=== PATIENT | female | born 1970 | race Caucasian/White ===

== ENCOUNTER 2018-01-04 19:21 | Emergency (ER) | payer MEDICAID ==
[~2018-01-04] VITALS: Ht 157.5 cm; Wt 45.4 kg
[~2018-01-04 19:21] MED LIST: BENTYL 10 MG CA10 MG PO; BENTYL20 MG PO; CARAFATE 1 GM TA1 GM PO; CHOLESTYRAMINE P4 GM PO; CIPRO500 MG PO; CLONAZEPAM 0.50.5 M1 PO; CLONAZEPAM 1 MG1 M1 PO; DEPAKOTE ER500 MG PO; FLAGYL500 MG PO; GEODON20 MG PO; HYDROCODONE-AP1 EAC6 PO; HYDROXYZINE HCL25 M1; HYDROXYZINE HCL25 M1 PO; HYDROXYZINE HCL50 MG PO; IBUPROFEN 800800 M1 PO; KEFLEX500 M1 PO; LAMICTAL XR100 MG PO; LATUDA60 MG PO; LEXAPRO 10 MG T10 M1 PO; LOPERAMIDE2 MG PO; NEURONTIN100 MG PO; NOHOMEMEDICATIONS; NORCO 5-325 TA1 EACH PO; PHENERGAN 25 MG25 M1 PO; RESTORIL30 MG PO; SEROQUEL 50 MG50 MG PO; SEROQUEL300 MG PO; TRAZODONE 150150 M1 PO; TRAZODONE HCL100 MG PO; ULTRAM 50MG TAB50 MG PO; VALIUM5 MG PO; VENLAFAXINE HC100 MG PO; ZIPRASIDONE HCL40 MG PO; ZOLOFT50 MG PO
[2018-01-04 19:48] LABS: ABSOLUTE BASOPHILS 0.1 thou/uL (0.0-0.2); ABSOLUTE EOSINOPHILS 0.1 thou/uL (0.0-0.7); ABSOLUTE LYMPHOCYTES 4.1 thou/uL (0.8-5.3); ABSOLUTE MONOCYTES 0.6 thou/uL (0.0-1.2); ABSOLUTE NEUTROPHILS 4.6 thou/uL (1.6-8.1); BASOPHILS 1.2 %; HEMATOCRIT 40.2 % (37.0-47.0); HEMOGLOBIN 14.1 gm/dL (12.0-15.0); LYMPHOCYTES 43.2 %; MCH 35.8 pg (26.0-34.0); MCHC 35.1 g/dL (28.0-37.0); MCV 102.1 fL (80.0-100.0); MONOCYTES 6.5 %; MPV 8.3 fl. (7.2-11.1); NUCLEATED RBCS 0 /100WBC; PLATELET COUNT* 187 thou/uL (150-400); POLYS 48.1 %; RBC 3.94 mil/uL (4.20-5.00); RDW-CV 13.7 % (10.5-14.5); WBC 9.5 thou/uL (4.0-11.0)
[2018-01-04 19:55] LABS: CREATININE 1.1 mg/dL (0.6-1.3); POTASSIUM 3.9 mmol/L (3.5-5.1)
[2018-01-04 20:00] LABS: URINE BILIRUBIN NEGATIVE (Negative); URINE BLOOD NEGATIVE (Negative); URINE CLARITY CLEAR; URINE COLOR YELLOW; URINE GLUCOSE-RANDOM NEGATIVE (Negative); URINE KETONES 1+ (Negative); URINE LEUKOCYTES-REFLEX 1+ (Negative); URINE PROTEIN TRACE (Negative); URINE SPECIFIC GRAVITY 1.025 (1.005-1.030); URINE UROBILINOGEN 0.2 E.U./dl (0.2-1.0)
[2018-01-04 20:00] LABS: ALBUMIN 3.9 g/dL (3.4-5.0); TOTAL BILIRUBIN 0.3 mg/dL (<0.1-1.0); TOTAL PROTEIN 7.8 g/dL (6.4-8.2)
[2018-01-04 20:02] LABS: URINE NITRITE-REFLEX POSITIVE (Negative)
[2018-01-04 20:11] LABS: HYALINE CASTS 0-3 Few /LPF (None Seen); MUCUS >6 Heavy strn/LPF (None Seen); SQUAMOUS >10 Many /LPF (0-3); URINE RBC 3-10 Few /HPF (0-2); URINE WBC-REFLEX 6-15 Few /HPF (0-5)
[2018-01-04 20:12] LABS: CRYSTALS None Seen /LPF (None Seen)
[2018-01-04] MEDS ORDERED: BENTYL 20 MG TA20 M1 PO (21:01)
[2018-01-04] MEDS ORDERED: MACROBID 100 M100 M1 PO (21:01)
[2018-01-04] MEDS ORDERED: ZOFRAN4 MG PO (21:01)
[2018-01-04 21:22] VITALS: BP 113/70
== END 2018-01-04 21:23 | disposition home or self-care (01) ==
LOC: M.ERS 19:21
PROVIDERS: Nurse Practitioner Family
DX: N39.0 Urinary tract infection, site not specified (principal); K59.00 Constipation, unspecified; F41.9 Anxiety disorder, unspecified; F32.9 Major depressive disorder, single episode, unspecified; F43.10 Post-traumatic stress disorder, unspecified; Z90.710 Acquired absence of both cervix and uterus; F17.210 Nicotine dependence, cigarettes, uncomplicated

== ENCOUNTER 2018-03-30 06:50 | Emergency (ER) | payer OTHER ==
[~2018-03-30] VITALS: Ht 160 cm; Wt 47.2 kg
[~2018-03-30 06:50] MED LIST changes: +BENTYL 20 MG TA20 M1 PO; +MACROBID 100 M100 M1 PO; +ZOFRAN4 MG PO
[2018-03-30 07:35] LABS: ABSOLUTE BASOPHILS 0.1 thou/uL (0.0-0.2); ABSOLUTE EOSINOPHILS 0.3 thou/uL (0.0-0.7); ABSOLUTE LYMPHOCYTES 3.6 thou/uL (0.8-5.3); ABSOLUTE NEUTROPHILS 5.2 thou/uL (1.6-8.1); BASOPHILS 1.3 %; EOSINOPHILS 2.7 %; HEMATOCRIT 43.7 % (37.0-47.0); HEMOGLOBIN 15.3 gm/dL (12.0-15.0); LYMPHOCYTES 35.5 %; MCH 35.8 pg (26.0-34.0); MCHC 34.9 g/dL (28.0-37.0); MCV 102.4 fL (80.0-100.0); MONOCYTES 9.4 %; NUCLEATED RBCS 0 /100WBC; PLATELET COUNT* 254 thou/uL (150-400); POLYS 51.1 %; RBC 4.27 mil/uL (4.20-5.00); WBC 10.1 thou/uL (4.0-11.0)
[2018-03-30 07:40] LABS: ANION GAP 7 mmol/L (7-16); BUN 10 mg/dL (7-18); CALCIUM 9.1 mg/dL (8.5-10.1); CHLORIDE 101 mmol/L (98-107); CO2 29 mmol/L (21-32); CREATININE 0.9 mg/dL (0.6-1.3); GLUCOSE 99 mg/dL (70-99); POTASSIUM 3.6 mmol/L (3.5-5.1); PROTIME 9.9 Seconds (9.20-11.50); SODIUM 137 mmol/L (136-145)
[2018-03-30 07:47] LABS: ALBUMIN 3.9 g/dL (3.4-5.0); ALKALINE PHOSPHATASE 72 U/L (46-116); SGOT 15 U/L (15-37); SGPT 13 U/L (30-65); TOTAL BILIRUBIN 0.2 mg/dL (<0.1-1.0); TOTAL PROTEIN 8.2 g/dL (6.4-8.2); TROPONIN-I LEVEL <0.06 ng/mL (<0.06)
[2018-03-30] MEDS ORDERED: HYDROCODONE-AP1 EAC6 PO (08:10)
[2018-03-30 08:23] VITALS: BP 130/59
--- NOTE | 2018-03-30 12:37 | EKG ---
[place] [address] ELECTROCARDIOGRAM REPORT Name: HANNAH GARCIA Room: [facility]#: [id number] Admission: 03/30/18 Attend Phys: Discharge: 03/30/18 Date of : 68 Report #: [id number] THIS REPORT FOR: //name// [facility] ED Test Date: 2018-03-30 Test Time: 08:10:48 Pat Name: HANNAH GARCIA Department: Room: Gender: F Computer Systems Information Director: Sara HDZ : 1970 Requested By: Krishan Emerson Order Number: [id number] MD: Brodie Grant Measurements Intervals [place] Rate: 75 P: 85 DE: 140 QRS: 78 QRSD: 77 T: 56 QT: 398 QTc: 445 Interpretive Statements Sinus rhythm Consider left atrial enlargement Compared to ECG 05/08/2017 17:56:02 No significant changes Electronically Signed On 03-30-2018 12:37:07 CDT by Brodie Grant [email or web address] <ELECTRONICALLY SIGNED> By: Brodie Grant MD, [facility] 03/30/18 1237 9 9 Brodie Grant MD, FAC /EPI
== END 2018-03-30 08:24 | disposition home or self-care (01) ==
LOC: M.ERS 06:50
PROVIDERS: Emergency Medicine Emergency Medical Services
DX: N64.4 Mastodynia (principal); F17.210 Nicotine dependence, cigarettes, uncomplicated; F31.9 Bipolar disorder, unspecified; F41.9 Anxiety disorder, unspecified; Z90.710 Acquired absence of both cervix and uterus